=== PATIENT | female | born 1980 | race Two or more races ===

== ENCOUNTER 2018-10-11 09:44 | Outpatient (CLI) | payer OTHER | END 2018-10-11 10:05 | disposition home or self-care (01) | LOC: LAB 09:44 | DX: R79.0 Abnormal level of blood mineral (principal); Z01.818 Encounter for other preprocedural examination; E53.9 Vitamin B deficiency, unspecified; E55.9 Vitamin D deficiency, unspecified; Z11.4 Encounter for screening for human immunodeficiency virus [HIV]; N39.0 Urinary tract infection, site not specified; R63.4 Abnormal weight loss; J34.89 Other specified disorders of nose and nasal sinuses; Z32.00 Encounter for pregnancy test, result unknown; R82.79 Other abnormal findings on microbiological examination of urine ==

== ENCOUNTER 2019-01-21 12:26 | Outpatient (CLI) | payer OTHER | END 2019-01-21 14:49 | disposition home or self-care (01) | LOC: MRI 12:26 | DX: G44.89 Other headache syndrome (principal) | CPT/HCPCS: 70551 ==

== ENCOUNTER 2019-01-24 10:00 | Outpatient (CLI) | payer OTHER | END 2019-01-24 10:10 | disposition home or self-care (01) | LOC: LAB 10:00 | DX: Z13.0 Encounter for screening for diseases of the blood and blood-forming organs and certain disorders involving the immune mechanism (principal); Z13.29 Encounter for screening for other suspected endocrine disorder; Z13.220 Encounter for screening for lipoid disorders ==

== ENCOUNTER 2019-11-10 21:06 | Outpatient (CLI) | payer OTHER | END 2019-11-11 12:28 | disposition home or self-care (01) | LOC: LAB 21:06 | DX: N39.0 Urinary tract infection, site not specified (principal) ==

== ENCOUNTER 2020-03-28 08:05 | Outpatient (CLI) | payer OTHER | END 2020-03-28 08:10 | disposition home or self-care (01) | LOC: LAB 08:05 | DX: R10.2 Pelvic and perineal pain (principal) ==

== ENCOUNTER 2020-06-22 17:42 | Outpatient (CLI) | payer OTHER | END 2020-06-22 18:00 | disposition home or self-care (01) | LOC: LAB 17:42 | PROVIDERS: ATTEND General Practice | DX: N39.0 Urinary tract infection, site not specified (principal) ==

== ENCOUNTER → 2020-07-15 18:08 | Outpatient (CLI) | payer OTHER | END | disposition home or self-care (01) | LOC: LAB 18:08 | PROVIDERS: ATTEND Internal Medicine Geriatric Medicine | DX: N39.0 Urinary tract infection, site not specified (principal) ==

== ENCOUNTER → 2020-09-17 08:46 | Outpatient (CLI) | payer OTHER | END | disposition home or self-care (01) | LOC: LAB 08:46 | PROVIDERS: ATTEND Internal Medicine | DX: E03.8 Other specified hypothyroidism (principal); E11.9 Type 2 diabetes mellitus without complications; E78.2 Mixed hyperlipidemia; E55.9 Vitamin D deficiency, unspecified; N39.0 Urinary tract infection, site not specified; D50.0 Iron deficiency anemia secondary to blood loss (chronic); R19.5 Other fecal abnormalities ==

== ENCOUNTER 2020-10-29 20:36 | Emergency (ER) | payer OTHER ==
[~2020-10-29] VITALS: Ht 170.2 cm; Wt 0.5 kg
[2020-10-30] MEDS ORDERED: MACROBID 100 M100 MG PO (01:10)
[2020-10-30] MEDS ORDERED: INTESTINEX680 M2 PO (01:10)
== END 2020-10-30 01:49 ==
LOC: ER 20:36
DX: N39.0 Urinary tract infection, site not specified (principal); R50.9 Fever, unspecified; Z20.828 Contact with and (suspected) exposure to other viral communicable diseases

== ENCOUNTER 2024-08-17 09:12 | Outpatient (CLI) | payer OTHER ==
[~2024-08-17 09:12] MED LIST: INTESTINEX680 M2 PO; MACROBID 100 M100 MG PO
== END 2024-08-17 09:33 | disposition home or self-care (01) ==
LOC: MAMO-SONO 09:12
PROVIDERS: ATTEND Specialist
DX: Z01.818 Encounter for other preprocedural examination (principal); N64.4 Mastodynia

== ENCOUNTER → 2024-08-17 10:36 | Outpatient (CLI) | payer OTHER ==
[2024-08-17 11:56] LABS: PH,URINE 6.5 (5.0-8.0); URINE APPEARANCE Clear; URINE BILIRRUBIN Negative (NEGATIVE); URINE BLOOD Negative; URINE COLOR Yellow; URINE GLUCOSE Negative (NEGATIVE); URINE KETONE Negative (NEGATIVE); URINE LEUKOCYTE Negative; URINE NITRATE Negative; URINE PROTEIN Negative (NEGATIVE); URINE UROBILINOGEN 0.2 E.U./dl
[2024-08-17 11:57] LABS: URINE BACTERIA 27.7 uL (0.0-1933); URINE EPITHELIAL CELLS 5.5 uL (0.0-38.8)
[2024-08-17 11:59] LABS: HEMATOCRIT 29.2 % (36.0-45.00); HEMOGLOBIN 9.7 g/dL (12.0-15.00); MEAN CORPUSCULAR HGB CONC 33.4 g/dl (32.0-36.0); PLATELET COUNT 411 K/uL (150-450); RED BLOOD COUNT 4.24 M/uL (4.00-6.00); RED CELL DISTRIBUTION WIDTH 19.1 % (11.5-14.5)
[2024-08-17 12:30] LABS: ALBUMIN 4.2 gm/dL (3.4-5.0); BILIRUBIN TOTAL 0.25 mg/dL (0.3-1.2); CALCIUM 9.3 mg/dL (8.5-10.1); CREATININE SERUM 0.62 mg/dL (0.55-1.02); GFR 103.63; GLOBULINA 3.4 G/DL (2.4-3.5); POTASSIUM 5.04 mEq/L (3.5-5.1); TOTAL PROTEIN 7.6 gm/dL (6.4-8.2)
[2024-08-17 12:35] LABS: INR 1.04; PROTHROMBIN TIME 10.8 SECONDS (9.0-11.5)
[2024-08-17 12:49] LABS: URINE RBC 1.5 uL (0.0-20.8); URINE WBC 1.6 uL (0.0-23.2)
[2024-08-17 12:51] LABS: MEAN CELL VOLUME 68.9 fL (80.00-100.00)
[2024-08-19 07:07] LABS: hav igm Negative (Negative); hcv Non Reactive (Non Reactive); hep b c Negative (Negative); hep b s ag Negative (Negative)
== END | disposition home or self-care (01) ==
LOC: LAB 10:36
PROVIDERS: ATTEND Specialist
DX: R79.0 Abnormal level of blood mineral (principal); Z01.818 Encounter for other preprocedural examination; E53.9 Vitamin B deficiency, unspecified; E55.9 Vitamin D deficiency, unspecified; Z11.4 Encounter for screening for human immunodeficiency virus [HIV]; N39.0 Urinary tract infection, site not specified; R63.4 Abnormal weight loss; K73.9 Chronic hepatitis, unspecified; J34.89 Other specified disorders of nose and nasal sinuses; Z32.00 Encounter for pregnancy test, result unknown; E53.8 Deficiency of other specified B group vitamins; E78.9 Disorder of lipoprotein metabolism, unspecified

== ENCOUNTER 2024-09-18 06:17 | Day surgery (SDC) | payer OTHER ==
[2024-09-16 11:56] VITALS: BP 102/65
[2024-09-17 14:55] LABS: PROTHROMBIN TIME 10.9 SECONDS (9.0-11.5)
[~2024-09-18] VITALS: Ht 165.1 cm; Wt 61.2 kg
[2024-09-18] MEDS ORDERED: TRANEXAMIC ACID 100MG/1ML (1000MG) AMPUL IV SCH (10:00)
[2024-09-18] MEDS ORDERED: EPINEphrine 10 ML DISP.SYRIN IJ SCH (10:00)
[2024-09-18] MEDS ORDERED: LIDOCAINE HCL 1%/EPINEPHRINE 20ML VIAL IJ SCH ×2 (10:00→13:00)
[2024-09-18] MEDS ORDERED: CEFAZOLIN SODIUM 1,000 MG VIAL IV SCH (10:00)
[2024-09-18] MEDS ORDERED: BACITRACIN 28.35 GM OINT.TUBE TOP SCH (12:00)
[2024-09-18] MEDS ORDERED: POVIDONE-IODINE 118 ML BOTT TOP SCH (13:00)
[2024-09-18] MEDS ORDERED: BUPIVACAINE HCL 30 ML VIAL IJ SCH (13:00)
[2024-09-18] MEDS ORDERED: SUGAMMADEX SODIUM 200 MG/2 ML VIAL IV ONE (16:30)
== END 2024-09-18 20:30 | disposition home or self-care (01) ==
LOC: CIR.AMB 06:17
PROVIDERS: ATTEND Specialist
DX: N64.89 Other specified disorders of breast (principal); E88.1 Lipodystrophy, not elsewhere classified; N64.81 Ptosis of breast

== ENCOUNTER 2025-01-19 16:27 | Outpatient (CLI) | payer OTHER | END 2025-01-19 16:41 | disposition home or self-care (01) | LOC: EKG 16:27 | PROVIDERS: ATTEND Specialist | DX: Z01.818 Encounter for other preprocedural examination (principal); M75.42 Impingement syndrome of left shoulder ==